=== PATIENT | male | born 1955 | race Two or more races ===

== ENCOUNTER 2017-06-17 14:24 | Emergency (ER) | payer OTHER ==
[~2017-06-17] VITALS: Ht 182.9 cm; Wt 152.2 kg
[~2017-06-17 14:24] MED LIST: TAMS-11 PO
[2017-06-17] MEDS ORDERED: LISI-167 PO (14:53)
[2017-06-17] MEDS ORDERED: METF500T4 PO (14:53)
[2017-06-17] MEDS ORDERED: GABA300C10 PO (14:53)
[2017-06-17] MEDS ORDERED: ATOR20TA9 PO (14:53)
[2017-06-17] MEDS ORDERED: OMEP40CA6 PO (14:53)
[2017-06-17] MEDS ORDERED: SODIUM CHLORIDE FLUSH 10ML SYR IVF ONE (15:30)
[2017-06-17] MEDS ORDERED: SODIUM CHLORIDE 0.9% 1,000ML IVBOLUS ONE (15:30)
[2017-06-17] MEDS ORDERED: LIDOCAINE 1%, 20ML INFIL ONE (15:30)
[2017-06-17 15:45] LABS: BASOPHILS # (AUTO) 0.06 x10^3/uL (0-0.1); BASOPHILS % (AUTO) 1 % (0-1); EOSINOPHILS # (AUTO) 0.09 x10^3/uL (0-0.4); EOSINOPHILS % (AUTO) 1 % (1-7); LYMPHOCYTES # (AUTO) 0.85 x10^3/uL (1-3.4); LYMPHOCYTES % (AUTO) 8 % (22-44); MD NO; MEAN CORPUSCULAR HEMOGLOBIN 29.3 pg (27.5-34.5); MEAN CORPUSCULAR HGB CONC 33.2 g/dL (33.2-36.2); MEAN CORPUSCULAR VOLUME 88.5 fL (81-97); MEAN PLATELET VOLUME 7.9 fL (7.4-10.4); MONOCYTES % (AUTO) 7 % (2-9); NEUTROPHILS # (AUTO) 9.21 x10^3/uL (1.8-6.8); NEUTROPHILS % (AUTO) 84 % (42-75); PLATELET COUNT 234 x10^3/uL (130-400); RED BLOOD COUNT 4.88 x10^6/uL (4.38-5.82); RED CELL DISTRIBUTION WIDTH 14.4 % (9.4-14.8)
[2017-06-17] MEDS ORDERED: LIDOCAINE-MPF 2% ,5ML ONE (15:53)
[2017-06-17 15:55] LABS: ALANINE AMINOTRANSFERASE 9 U/L (12-78); ALBUMIN 3.2 g/dL (3.4-5.0); ANION GAP 8 mmol/L (5-15); CALCIUM 8.7 mg/dL (8.5-10.1); CHLORIDE 104 mmol/L (98-107)
[2017-06-17 15:56] LABS: ALKALINE PHOSPHATASE 115 U/L (45-117); BILIRUBIN,TOTAL 1.4 mg/dL (0.2-1.0); TOTAL PROTEIN 7.3 g/dL (6.4-8.2)
[2017-06-17] MEDS ORDERED: CLINDAMYCIN PMX 900MG/50ML 50 ML ONE (16:51)
[2017-06-17] MEDS ORDERED: CLINDAMYCIN PMX 900MG/50ML 50 ML IV ONE (17:00)
[2017-06-17 17:57] VITALS: BP 141/75
== END 2017-06-17 18:36 | disposition home or self-care (01) ==
LOC: ED 18:10
DX: L03.317 Cellulitis of buttock (principal); L02.31 Cutaneous abscess of buttock; E11.9 Type 2 diabetes mellitus without complications; G47.33 Obstructive sleep apnea (adult) (pediatric)
CPT/HCPCS: 10061; 36415; 80053; 83605; 85025; 87040; 96365; 96366; 99285; J7030

== ENCOUNTER → 2017-11-05 | Outpatient (CLI) | payer OTHER ==
[~2017-11-05] MED LIST changes: +ATOR20TA9 PO; +GABA300C10 PO; +LISI-167 PO; +METF500T5 PO; +OMEP40CA6 PO
[2017-11-05 12:17] LABS: BASOPHILS # (AUTO) 0.02 x10^3/uL (0-0.1); BASOPHILS % (AUTO) 0 % (0-1); EOSINOPHILS # (AUTO) 0.08 x10^3/uL (0-0.4); EOSINOPHILS % (AUTO) 2 % (1-7); LYMPHOCYTES # (AUTO) 0.94 x10^3/uL (1-3.4); LYMPHOCYTES % (AUTO) 18 % (22-44); MD NO; MEAN CORPUSCULAR HEMOGLOBIN 30.2 pg (27.5-34.5); MEAN CORPUSCULAR HGB CONC 33.4 g/dL (33.2-36.2); MEAN CORPUSCULAR VOLUME 90.5 fL (81-97); MEAN PLATELET VOLUME 8.2 fL (7.4-10.4); MONOCYTES # (AUTO) 0.36 x10^3/uL (0.2-0.8); MONOCYTES % (AUTO) 7 % (2-9); NEUTROPHILS # (AUTO) 3.86 x10^3/uL (1.8-6.8); NEUTROPHILS % (AUTO) 74 % (42-75); PLATELET COUNT 177 x10^3/uL (130-400); RED BLOOD COUNT 5.05 x10^6/uL (4.38-5.82); RED CELL DISTRIBUTION WIDTH 15.8 % (9.4-14.8)
[2017-11-05 12:28] LABS: ALANINE AMINOTRANSFERASE 14 U/L (12-78); ALBUMIN 3.4 g/dL (3.4-5.0); ANION GAP 9 mmol/L (5-15); CALCIUM 8.5 mg/dL (8.5-10.1); CHLORIDE 107 mmol/L (98-107); CREATININE 0.71 mg/dL (0.7-1.3)
[2017-11-05 12:30] LABS: ALKALINE PHOSPHATASE 105 U/L (45-117); TOTAL PROTEIN 6.8 g/dL (6.4-8.2)
== END | disposition home or self-care (01) ==
LOC: STAR 11:14
PROVIDERS: ATTEND Surgery
DX: Z01.818 Encounter for other preprocedural examination (principal); A63.0 Anogenital (venereal) warts
CPT/HCPCS: 36415; 80053; 85025; 93005

== ENCOUNTER 2017-11-13 13:12 | Day surgery (SDC) | payer OTHER ==
[2017-11-05 11:49] VITALS: BP 164/95
[~2017-11-13] VITALS: Ht 182.9 cm; Wt 152.4 kg
[2017-11-13] MEDS ORDERED: LACTATED RINGERS 1,000 ML IV SCH ×2 (14:11→19:00)
[2017-11-13] MEDS ORDERED: FENTANYL PF 100 MCG/2ML ONE (15:16)
[2017-11-13] MEDS ORDERED: MIDAZOLAM 1 MG/ML, 2ML ONE (15:16)
[2017-11-13] MEDS ORDERED: PROPOFOL 10 MG/ML, 20ML ONE (15:32)
[2017-11-13] MEDS ORDERED: KETOROLAC 30 MG/1 ML ONE (15:32)
[2017-11-13] MEDS ORDERED: CEFAZOLIN 1,000 MG ONE (15:32)
[2017-11-13] MEDS ORDERED: SUCCINYLCHOLINE 20 MG/ML, 10ML ONE (15:32)
[2017-11-13] MEDS ORDERED: ONDANSETRON 2MG/ML, 2ML ONE (15:32)
[2017-11-13] MEDS ORDERED: ROCURONIUM 10 MG/ML,10ML ONE (15:32)
[2017-11-13] MEDS ORDERED: BUPIVACAINE/PF-EPI 0.5% 1:200K INFIL ONE (16:19)
[2017-11-13] MEDS ORDERED: ONDANSETRON 2MG/ML, 2ML IVPush PRN ×2 (17:00→19:00)
[2017-11-13] MEDS ORDERED: HYDROmorphone 1 MG/ML, 1ML IV PRN (17:00)
[2017-11-13] MEDS ORDERED: MEPERIDINE/PF 25MG/0.5ML IVPush PRN (17:00)
[2017-11-13] MEDS ORDERED: FENTANYL PF 100 MCG/2ML IV PRN (17:00)
[2017-11-13] MEDS ORDERED: OXYcodone 5 MG/5 ML ORAL.SOL UDC PO PRN ×2 (17:00→19:00)
[2017-11-13] MEDS ORDERED: METOCLOPRAMIDE 5 MG/ML, 2ML IV PRN (17:00)
[2017-11-13] MEDS ORDERED: PROMETHAZINE 25 MG/ML, 1ML IV PRN (17:00)
[2017-11-13] MEDS ORDERED: ALBUTEROL SULFATE 2.5 MG/3 ML NPPB PRN (17:00)
[2017-11-13] MEDS ORDERED: LABETALOL 5MG/ML, 20ML IV PRN (17:00)
[2017-11-13] MEDS ORDERED: KETOROLAC 30 MG/1 ML IV PRN (17:00)
[2017-11-13] MEDS ORDERED: hydrALAzine 20 MG/ML, 1ML IV PRN (17:00)
[2017-11-13] MEDS ORDERED: OXYcodone 5 MG/5 ML ORAL.SOL UDC ONE (18:03)
[2017-11-13] MEDS ORDERED: HYDROmorphone 2 MG/ML, 1ML IV PRN (19:00)
[2017-11-13] MEDS ORDERED: DIPHENHYDRAMINE 50 MG/ML, 1ML IVPush PRN (19:00)
== END 2017-11-13 20:00 | disposition home or self-care (01) ==
LOC: OUT 13:12 → 4NOR 18:29 → OUT 20:00
PROVIDERS: ATTEND Surgery
DX: D23.72 Other benign neoplasm of skin of left lower limb, including hip (principal); D23.71 Other benign neoplasm of skin of right lower limb, including hip; L91.8 Other hypertrophic disorders of the skin; G47.33 Obstructive sleep apnea (adult) (pediatric); I10 Essential (primary) hypertension; E11.9 Type 2 diabetes mellitus without complications; Z98.890 Other specified postprocedural states; Z72.89 Other problems related to lifestyle
CPT/HCPCS: 11200; 11201; 14301; 14302; 88304; 88305; J0330; J0690; J1885; J2250; J2405; J2704; J3010; J7120